=== PATIENT | male | born 1940 | race Caucasian/White ===

== ENCOUNTER 2021-02-06 13:13 | Outpatient (REF) | payer OTHER, SELFPAY ==
--- NOTE | ~2021-02-06 | MR_ITS ---
EXAMINATION: MR WRIST WITHOUT CONTRAST, LEFT CLINICAL INFORMATION: Swelling of left wrist despite brace. ? Scaphoid fracture. Patient reports left wrist pain and swelling for 3 weeks with no recent injury. COMPARISON: XR left wrist 04/03/2009 TECHNIQUE: MRI of the wrist was performed using routine sequences on a high-field scanner. FINDINGS: TRIANGULAR FIBROCARTILAGE: There is marked thinning and probable irregular full-thickness tearing of the central membranous portion of the triangular fibrocartilage. INTRINSIC LIGAMENTS: Grossly intact. TENDONS/MEDIAN NERVE: There is a small amount of fluid in the flexor carpi radialis tendon sheath suggesting mild tenosynovitis. The tendons are otherwise intact. ARTICULAR CARTILAGE/BONE: There is patchy mild cartilage thinning in the scapholunate and triscaphe joints, with small marginal osteophytes. There is a tiny subchondral degenerative cyst in the proximal pole of the scaphoid. There is patchy moderate cartilage irregularity and thinning in the 1st CMC joint with small marginal osteophytes. No fractures are identified, with specific attention to the scaphoid. JOINT FLUID/SOFT TISSUES: Within normal limits. MR/MR wrist LT wo con IMPRESSION: 1. Full-thickness tear of the central triangular fibrocartilage. 2. Mild flexor carpi radialis tenosynovitis. 3. 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
== END 2021-02-06 13:14 | disposition home or self-care (01) ==
LOC: HO.MRI 13:13
PROVIDERS: PCP Physician Assistant Medical; Visit Provider Physician Assistant Medical
DX: M25.432 Effusion, left wrist (principal)
CPT/HCPCS: 73221

== ENCOUNTER 2022-09-03 15:38 | Emergency (ER) | payer OTHER, SELFPAY ==
--- NOTE | ~2022-09-03 | XR_ITS ---
EXAMINATION: XR CHEST CLINICAL INFORMATION: Chest pain COMPARISON: 04/30/2008 TECHNIQUE: Frontal view of the chest was obtained. FINDINGS: There is a 4 cm right perihilar opacity which is new from the prior study. No pleural effusion or pneumothorax. Normal pulmonary vascularity. Calcified aortic arch. No acute osseous abnormality. XR/XR chest 1V IMPRESSION: 4 cm right perihilar opacity is new from the 2008 chest x-ray. This could represent pneumonia or a mass. Consider CT scan for definitive evaluation.
[2022-09-03 15:41] VITALS: BP 136/88; PULSE 98; RESP 18; TEMP 36.7; O2SAT 97; BMI 35.5
--- NOTE | 2022-09-03 15:45 | ED_ITS ---
HPI - Chest Pain General Chief Complaint: Chest Pain Stated Complaint: chest pain Time Seen by Provider: 09/03/22 19:48 Related Data Allergies Allergy/AdvReac Type Severity Reaction Status Date / Time No Known Allergies Allergy Unknown Unverified 07/14/20 16:57 [facility] Social History Social History Advance Directives: Yes Advance Directives Information Provided: No Advance Directives on File: No Physical Exam Vital Signs: Vital Signs: Last Vital Signs Temp 97.5 F 09/03/22 23:07 Pulse 76 09/03/22 23:07 Resp 18 09/03/22 23:07 BP 109/76 09/03/22 23:07 Pulse Ox 95 09/03/22 23:07 O2 Del Method 09/03/22 23:07 BMI result Body Mass Index 35.5 Course Reevaluation(s) Reevaluation #1: chest pain after nuclear stress test at [facility]. Intermittent described as a pressure Time: 15:46 MDM - Chest Pain Lab Data Result diagrams: 09/03/22 16:00 09/03/22 16:00 Labs: Lab Results 09/03/22 09/03/22 09/03/22 Range/Units 16:00 16:00 16:00 WBC 14.1 H (4.8-10.8) X10*3/uL RBC 4.79 (4.60-5.80) X10*6/uL Hgb 13.9 L (14.0-18.0) g/dl Hct 42.4 (42.0-52.0) % MCV 88.5 (80.0-98.0) fL MCH 29.0 (27.0-33.0) pg MCHC 32.8 (31.0-36.0) g/dl RDW 13.7 (11.0-16.0) % Plt Count 312 (160-400) X10*3/uL MPV 9.8 (9.4-12.4) fL Immature Gran % (Auto) 0.3 (0.0-0.4) % Neut % (Auto) 72.9 (45-73) % Lymph % (Auto) 18.3 L (20-40) % [place] % (Auto) 6.5 (2-11) % Eos % (Auto) 1.6 (0-4) % Baso % (Auto) 0.4 (0-2) % Lymph # (Auto) 2.6 (1.2-4.9) X10*3/uL [place] # (Auto) 0.9 (0.1-1.2) X10*3/uL Eos # (Auto) 0.2 (0.0-0.4) X10*3/uL Baso # (Auto) 0.1 (0.0-0.2) X10*3/uL Abs Immat Gran (auto) 0.04 H (0.00-0.03) X10*3/uL Absolute Neuts (auto) 10.3 H (2.0-8.3) x10*3/uL Absolute Nucleated RBC 0.000 (0.0-0.012) X10*3/uL Nucleated RBC % (auto) 0.0 (0.0-0.2) /100WBC Sodium 138 (135-145) mmol/L Potassium 4.4 (3.3-5.1) mmol/L Chloride 99 (96-108) mmol/L Carbon Dioxide 26 (22-29) mmol/L Anion Gap 17 (12-20) BUN 33 H (9-16) mg/dL Creatinine 1.44 H (0.5-1.4) mg/dL Estim Creat Clear Calc 49.3 Estimated GFR 47 Random Glucose 152 H (60-115) mg/dL Calcium 9.5 (8.4-10.2) mg/dL Troponin I High Sens 6.1 (<3.5-35.0) ng/L 09/03/22 Range/Units 20:44 WBC (4.8-10.8) X10*3/uL RBC (4.60-5.80) X10*6/uL Hgb (14.0-18.0) g/dl Hct (42.0-52.0) % MCV (80.0-98.0) fL MCH (27.0-33.0) pg MCHC (31.0-36.0) g/dl RDW (11.0-16.0) % Plt Count (160-400) X10*3/uL MPV (9.4-12.4) fL Immature Gran % (Auto) (0.0-0.4) % Neut % (Auto) (45-73) % Lymph % (Auto) (20-40) % [place] % (Auto) (2-11) % Eos % (Auto) (0-4) % Baso % (Auto) (0-2) % Lymph # (Auto) (1.2-4.9) X10*3/uL [place] # (Auto) (0.1-1.2) X10*3/uL Eos # (Auto) (0.0-0.4) X10*3/uL Baso # (Auto) (0.0-0.2) X10*3/uL Abs Immat Gran (auto) (0.00-0.03) X10*3/uL Absolute Neuts (auto) (2.0-8.3) x10*3/uL Absolute Nucleated RBC (0.0-0.012) X10*3/uL Nucleated RBC % (auto) (0.0-0.2) /100WBC Sodium (135-145) mmol/L Potassium (3.3-5.1) mmol/L Chloride (96-108) mmol/L Carbon Dioxide (22-29) mmol/L Anion Gap (12-20) BUN (9-16) mg/dL Creatinine (0.5-1.4) mg/dL Estim Creat Clear Calc Estimated GFR Random Glucose (60-115) mg/dL Calcium (8.4-10.2) mg/dL Troponin I High Sens 5.1 (<3.5-35.0) ng/L Discharge Plan Discharge Clinical Impression: Chest pain Patient Disposition: Home, Self-Care Instructions: Chest Pain (DC) Additional Instructions: Please call your meal room hand tomorrow 09:00 return to the emergency room if you worse if you break up in a sweat any concern Interventions: ED Discharge Assessment Last Done: 09/03/22 23:07 Discharge Date/Time: 09/03/22 23:08
--- NOTE | 2022-09-03 15:47 | ECG_ITS ---
Test Reason : CHEST PAIN Blood Pressure : / mmHG Vent. Rate : 100 BPM Atrial Rate : 000 BPM P-R Int : 000 ms QRS Dur : 090 ms QT Int : 390 ms P-R-T Axes : 000 -36 102 degrees QTc Int : 503 ms Atrial fibrillation Left axis deviation Nonspecific T wave abnormality Intra-ventricular conduction delay Abnormal ECG When compared with ECG of 26-MAR-2007 15:51, Significant changes have occurred Referred By: Stefan Jones Electronically Signed By:CONY ZABALA MD
[2022-09-03 16:06] LABS: MANUAL DIFF FLAG NO
[2022-09-03 16:10] LABS: Basophils Absolute Auto 0.1 X10*3/uL (0.0-0.2); Basophils Percent Auto 0.4 % (0-2); Eosinophils Absolute Auto 0.2 X10*3/uL (0.0-0.4); Eosinophils Percent Auto 1.6 % (0-4); Hematocrit 42.4 % (42.0-52.0); Hemoglobin 13.9 g/dl (14.0-18.0); Imm Gran Abs Auto 0.04 X10*3/uL (0.00-0.03); Imm Gran Pct Auto 0.3 % (0.0-0.4); Lymphocytes Absolute Auto 2.6 X10*3/uL (1.2-4.9); Lymphocytes Percent Auto 18.3 % (20-40); Mean Corpuscular HGB Conc 32.8 g/dl (31.0-36.0); Mean Corpuscular Volume 88.5 fL (80.0-98.0); Mean Platelet Volume 9.8 fL (9.4-12.4); Monocytes Absolute Auto 0.9 X10*3/uL (0.1-1.2); Monocytes Percent Auto 6.5 % (2-11); Neutrophils Absolute Auto 10.3 x10*3/uL (2.0-8.3); Neutrophils Percent Auto 72.9 % (45-73); Platelet Count 312 X10*3/uL (160-400); Red Blood Count 4.79 X10*6/uL (4.60-5.80); Red Cell Distribution Width 13.7 % (11.0-16.0); White Blood Count 14.1 X10*3/uL (4.8-10.8)
[2022-09-03 16:25] LABS: Anion Gap 17 (12-20); Blood Urea Nitrogen 33 mg/dL (9-16); Calcium 9.5 mg/dL (8.4-10.2); Carbon Dioxide 26 mmol/L (22-29); Chloride 99 mmol/L (96-108); Creatinine Clr Calc Pharmacy 49.3; Estimated Glomerular Filt Rate 47; Glucose Random 152 mg/dL (60-115); Potassium 4.4 mmol/L (3.3-5.1); Sodium 138 mmol/L (135-145)
[2022-09-03 16:33] LABS: Troponin-I High Sensitivity 6.1 ng/L (<3.5-35.0)
--- NOTE | 2022-09-03 20:09 | ED.CHESTPAIN ---
HPI - Chest Pain General Chief Complaint: Chest Pain Stated Complaint: chest pain Time Seen by Provider: 09/03/22 19:48 Source: patient Mode of arrival: ambulatory Limitations: no limitations History of Present Illness HPI narrative: This is 82 years old male presented to the emergency room with chest pain ,he does have hx of coronary artery disease he states that he has been having intermittent chest pain for few days his pain lasts few seconds an goes away. He states that he had a stress test today a [facility]. The patient was triaged early by DR Michelle OLIVERA complaint: chest pain Pertinent past history: coronary artery disease Onset (ago): week(s) Onset: during rest Pain location: substernal Pain radiation: none Quality: aching Exacerbating factors: nothing Related Data Allergies Allergy/AdvReac Type Severity Reaction Status Date / Time No Known Allergies Allergy Unknown Unverified 07/14/20 16:57 Review of Systems Review of Systems: Yes all other systems are reviewed and are negative Eyes: Eyes: Reports no additional eye complaints Cardiovascular: Cardiovascular: Reports chest pain Genitourinary: Genitourinary: Reports no additional male genitourinary complaints [facility] Past Medical History [facility] Narrative: CAD Social History Social History Advance Directives: Yes Advance Directives Information Provided: No Advance Directives on File: No Physical Exam Vital Signs: Vital Signs: Last Vital Signs Temp 97.5 F 09/03/22 23:07 Pulse 76 09/03/22 23:07 Resp 18 09/03/22 23:07 BP 109/76 09/03/22 23:07 Pulse Ox 95 09/03/22 23:07 O2 Del Method 09/03/22 23:07 BMI result Body Mass Index 35.5 Const: General: cooperative Nutritional Appearance: well nourished Orientation/consciousness: oriented to place, oriented to time and patient oriented x3 HEENT: Head: Yes normal to inspection Ears: hearing grossly normal bilaterally General nose exam: Normal external nose present Face and sinus: Yes normal facial exam Mouth: Normal oral and palatal mucosa present Throat: Yes posterior oropharynx normal Neck: Neck: Yes normal visual inspection and Yes full ROM Chest: Chest palpation & inspection: normal inspection of the chest Resp: Effort & Inspection: normal respiratory effort Auscultation: clear to auscultation bilaterally Cardio: Jugular venous distension: no JVD Rate: regular rate Rhythm: regular rhythm GI: Inspection: Yes normal to inspection Palpation (GI): Soft to palpation, not firm and nontender Auscultation: normal bowel sounds Skin: General skin exam: no rashes or lesions noted Lesions: no lesions Rashes: no rashes Neuro: General: oriented to place, oriented to time and patient oriented x3 Cranial nerves: Yes CN's II-XII intact bilaterally Course Reevaluation(s) Reevaluation #1: Delta delta troponin is negative, repeat EKG is unchanged he has chronic A.Fib rate is 95 without ischemic changes. I do not think this patient has acute coronary syndrome troponin normal, pain is atypical. I tried to contact his motorcycle maker [facility] Dr Morrissey , I spoke with the fellow I asked about the nuclear stress test there was area of fixed ischemia and a small area of reversible ischemia. The patient this time is chest pain-free an again 2 troponin high sensitivity negative. I told the patient to call his motorcycle maker the in a.m.. He is very comfortable with the plan, he is anticoagulated with Eliquis. MDM - Chest Pain Lab Data Result diagrams: 09/03/22 16:00 09/03/22 16:00 Labs: Lab Results 09/03/22 09/03/22 09/03/22 Range/Units 16:00 16:00 16:00 WBC 14.1 H (4.8-10.8) X10*3/uL RBC 4.79 (4.60-5.80) X10*6/uL Hgb 13.9 L (14.0-18.0) g/dl Hct 42.4 (42.0-52.0) % MCV 88.5 (80.0-98.0) fL MCH 29.0 (27.0-33.0) pg MCHC 32.8 (31.0-36.0) g/dl RDW 13.7 (11.0-16.0) % Plt Count 312 (160-400) X10*3/uL MPV 9.8 (9.4-12.4) fL Immature Gran % (Auto) 0.3 (0.0-0.4) % Neut % (Auto) 72.9 (45-73) % Lymph % (Auto) 18.3 L (20-40) % [place] % (Auto) 6.5 (2-11) % Eos % (Auto) 1.6 (0-4) % Baso % (Auto) 0.4 (0-2) % Lymph # (Auto) 2.6 (1.2-4.9) X10*3/uL [place] # (Auto) 0.9 (0.1-1.2) X10*3/uL Eos # (Auto) 0.2 (0.0-0.4) X10*3/uL Baso # (Auto) 0.1 (0.0-0.2) X10*3/uL Abs Immat Gran (auto) 0.04 H (0.00-0.03) X10*3/uL Absolute Neuts (auto) 10.3 H (2.0-8.3) x10*3/uL Absolute Nucleated RBC 0.000 (0.0-0.012) X10*3/uL Nucleated RBC % (auto) 0.0 (0.0-0.2) /100WBC Sodium 138 (135-145) mmol/L Potassium 4.4 (3.3-5.1) mmol/L Chloride 99 (96-108) mmol/L Carbon Dioxide 26 (22-29) mmol/L Anion Gap 17 (12-20) BUN 33 H (9-16) mg/dL Creatinine 1.44 H (0.5-1.4) mg/dL Estim Creat Clear Calc 49.3 Estimated GFR 47 Random Glucose 152 H (60-115) mg/dL Calcium 9.5 (8.4-10.2) mg/dL Troponin I High Sens 6.1 (<3.5-35.0) ng/L 09/03/22 Range/Units 20:44 WBC (4.8-10.8) X10*3/uL RBC (4.60-5.80) X10*6/uL Hgb (14.0-18.0) g/dl Hct (42.0-52.0) % MCV (80.0-98.0) fL MCH (27.0-33.0) pg MCHC (31.0-36.0) g/dl RDW (11.0-16.0) % Plt Count (160-400) X10*3/uL MPV (9.4-12.4) fL Immature Gran % (Auto) (0.0-0.4) % Neut % (Auto) (45-73) % Lymph % (Auto) (20-40) % [place] % (Auto) (2-11) % Eos % (Auto) (0-4) % Baso % (Auto) (0-2) % Lymph # (Auto) (1.2-4.9) X10*3/uL [place] # (Auto) (0.1-1.2) X10*3/uL Eos # (Auto) (0.0-0.4) X10*3/uL Baso # (Auto) (0.0-0.2) X10*3/uL Abs Immat Gran (auto) (0.00-0.03) X10*3/uL Absolute Neuts (auto) (2.0-8.3) x10*3/uL Absolute Nucleated RBC (0.0-0.012) X10*3/uL Nucleated RBC % (auto) (0.0-0.2) /100WBC Sodium (135-145) mmol/L Potassium (3.3-5.1) mmol/L Chloride (96-108) mmol/L Carbon Dioxide (22-29) mmol/L Anion Gap (12-20) BUN (9-16) mg/dL Creatinine (0.5-1.4) mg/dL Estim Creat Clear Calc Estimated GFR Random Glucose (60-115) mg/dL Calcium (8.4-10.2) mg/dL Troponin I High Sens 5.1 (<3.5-35.0) ng/L ECG Data ECG #1: Pacemaker model: Atrial fibrillation rate 100 no ischemic changes ECG #2: ECG interpretation time: 22:56 Pacemaker model: Atrial fibrillation rate 95 no ischemia Discharge Plan Discharge Clinical Impression: Chest pain Patient Disposition: Home, Self-Care Instructions: Chest Pain (DC) Additional Instructions: Please call your motorcycle maker tomorrow 09:00 return to the emergency room if you worse if you break up in a sweat any concern Interventions: ED Discharge Assessment Last Done: 09/03/22 23:07 Discharge Date/Time: 09/03/22 23:08
[2022-09-03 20:20] VITALS: BP 128/85; PULSE 91; RESP 16; O2SAT 98
[2022-09-03 21:13] LABS: Troponin-I High Sensitivity 5.1 ng/L (<3.5-35.0)
--- NOTE | 2022-09-03 22:30 | ECG_ITS ---
Test Reason : CHEST PAIN Blood Pressure : / mmHG Vent. Rate : 095 BPM Atrial Rate : 000 BPM P-R Int : 000 ms QRS Dur : 098 ms QT Int : 392 ms P-R-T Axes : 000 -38 102 degrees QTc Int : 492 ms Atrial fibrillation Left axis deviation Low voltage QRS Intra-ventricular conduction delay T wave abnormality, consider lateral ischemia Abnormal ECG When compared with ECG of 03-SEP-2022 15:48, No significant change was found Referred By: Melvin Garcia Electronically Signed By:CONY ZABALA MD
[2022-09-03 22:49] VITALS: BP 109/76; PULSE 93; RESP 28; TEMP 36.6; O2SAT 98
[2022-09-03 23:07] VITALS: BP 109/76; PULSE 76; RESP 18; TEMP 36.4; O2SAT 95
== END 2022-09-03 23:08 | disposition home or self-care (01) ==
PROVIDERS: Emergency Medicine; Emergency Provider Emergency Medicine; PCP Physician Assistant Medical
DX: R07.9 Chest pain, unspecified (principal)
CPT/HCPCS: 36415; 71045; 80048; 84484; 85025; 93005; 99284